=== PATIENT | female | born 1945 | race Two or more races ===

== ENCOUNTER 2017-11-23 10:26 | Outpatient (CLI) | payer OTHER | END 2017-11-23 11:20 | disposition home or self-care (01) | LOC: SONOGRAMA 10:26 | DX: M54.5 Low back pain (principal); R31.9 Hematuria, unspecified ==

== ENCOUNTER → 2017-11-23 10:37 | Outpatient (CLI) | payer OTHER | END | disposition home or self-care (01) | LOC: RAD 10:37 | DX: M15.8 Other polyosteoarthritis (principal); M54.5 Low back pain ==

== ENCOUNTER 2018-04-09 11:02 | Outpatient (CLI) | payer OTHER | END 2018-04-09 11:08 | disposition home or self-care (01) | LOC: LAB 11:02 | DX: Z11.3 Encounter for screening for infections with a predominantly sexual mode of transmission (principal) ==

== ENCOUNTER 2018-08-22 06:41 | Outpatient (CLI) | payer OTHER | END 2018-08-22 06:59 | disposition home or self-care (01) | LOC: LAB 06:41 | DX: I10 Essential (primary) hypertension (principal); N39.0 Urinary tract infection, site not specified; D64.89 Other specified anemias; N95.2 Postmenopausal atrophic vaginitis; R10.31 Right lower quadrant pain ==

== ENCOUNTER 2019-03-05 07:31 | Outpatient (CLI) | payer OTHER | END 2019-03-05 07:57 | disposition home or self-care (01) | LOC: LAB 07:31 | DX: E03.8 Other specified hypothyroidism (principal); E78.2 Mixed hyperlipidemia; E11.9 Type 2 diabetes mellitus without complications; I10 Essential (primary) hypertension ==

== ENCOUNTER 2019-07-21 12:25 | Outpatient (CLI) | payer OTHER | END 2019-07-21 14:39 | disposition home or self-care (01) | LOC: RAD 12:25 | DX: M54.2 Cervicalgia (principal); M54.6 Pain in thoracic spine; M47.812 Spondylosis without myelopathy or radiculopathy, cervical region; M47.814 Spondylosis without myelopathy or radiculopathy, thoracic region; I10 Essential (primary) hypertension ==

== ENCOUNTER → 2020-08-01 | Outpatient (CLI) | payer OTHER | END | disposition home or self-care (01) | LOC: OFIC 805 14:30 | PROVIDERS: ATTEND Otolaryngology Otology & Neurotology | DX: R05 Cough (principal); R09.82 Postnasal drip; K21.9 Gastro-esophageal reflux disease without esophagitis ==

== ENCOUNTER 2020-08-10 08:10 | Outpatient (CLI) | payer OTHER | END 2020-08-10 08:15 | disposition home or self-care (01) | LOC: SONOGRAMA 08:10 | PROVIDERS: ATTEND Internal Medicine Gastroenterology | DX: Q61.8 Other cystic kidney diseases (principal); K21.9 Gastro-esophageal reflux disease without esophagitis; Z86.010 Personal history of colon polyps; R10.13 Epigastric pain ==

== ENCOUNTER 2020-10-31 15:11 | Outpatient (CLI) | payer OTHER | END 2020-10-31 16:20 | disposition home or self-care (01) | LOC: OFIC 805 15:11 | PROVIDERS: ATTEND Otolaryngology Otology & Neurotology | DX: R05 Cough (principal); R09.82 Postnasal drip; K21.9 Gastro-esophageal reflux disease without esophagitis; J31.0 Chronic rhinitis ==

== ENCOUNTER 2020-11-14 08:35 | Outpatient (CLI) | payer OTHER | END 2020-11-14 12:33 | disposition home or self-care (01) | LOC: MAMO-SONO 08:35 | PROVIDERS: ATTEND Obstetrics & Gynecology Gynecology | DX: N60.11 Diffuse cystic mastopathy of right breast (principal); N60.12 Diffuse cystic mastopathy of left breast; N64.59 Other signs and symptoms in breast ==

== ENCOUNTER → 2021-01-11 06:54 | Outpatient (CLI) | payer OTHER | END | disposition home or self-care (01) | LOC: LAB 06:54 | PROVIDERS: ATTEND Internal Medicine Cardiovascular Disease | DX: I10 Essential (primary) hypertension (principal); E11.9 Type 2 diabetes mellitus without complications; E03.8 Other specified hypothyroidism; E78.2 Mixed hyperlipidemia ==

== ENCOUNTER → 2021-04-27 13:25 | Outpatient (CLI) | payer OTHER | END | disposition home or self-care (01) | LOC: NUCLEAR 13:15 | PROVIDERS: ATTEND Internal Medicine Rheumatology | DX: M81.0 Age-related osteoporosis without current pathological fracture (principal) ==

== ENCOUNTER 2021-05-12 07:50 | Outpatient (CLI) | payer OTHER | END 2021-05-12 15:00 | disposition home or self-care (01) | LOC: LAB 07:50 | PROVIDERS: ATTEND Internal Medicine Cardiovascular Disease | DX: E11.9 Type 2 diabetes mellitus without complications (principal) ==

== ENCOUNTER 2021-06-14 06:59 | Outpatient (CLI) | payer OTHER | END 2021-06-14 07:01 | disposition home or self-care (01) | LOC: LAB 06:59 | PROVIDERS: ATTEND Internal Medicine Cardiovascular Disease | DX: I10 Essential (primary) hypertension (principal); E11.9 Type 2 diabetes mellitus without complications; E03.8 Other specified hypothyroidism; E78.2 Mixed hyperlipidemia ==

== ENCOUNTER 2021-06-23 07:24 | Outpatient (CLI) | payer OTHER | END 2021-06-23 07:35 | disposition home or self-care (01) | LOC: TOM 07:24 | PROVIDERS: ATTEND Internal Medicine Cardiovascular Disease | DX: K76.0 Fatty (change of) liver, not elsewhere classified (principal); Q61.02 Congenital multiple renal cysts; R10.84 Generalized abdominal pain | CPT/HCPCS: 74177; Q9965 ==

== ENCOUNTER 2021-07-10 07:04 | Outpatient (CLI) | payer OTHER | END 2021-07-10 07:06 | disposition home or self-care (01) | LOC: LAB 07:04 | PROVIDERS: ATTEND Internal Medicine Cardiovascular Disease | DX: I11.9 Hypertensive heart disease without heart failure (principal) ==

== ENCOUNTER 2021-07-17 09:04 | Outpatient (CLI) | payer OTHER | END 2021-07-17 09:10 | disposition home or self-care (01) | LOC: NUCLEAR 09:04 | PROVIDERS: ATTEND Internal Medicine Cardiovascular Disease | DX: I47.1 Supraventricular tachycardia (principal) ==

== ENCOUNTER 2021-09-19 07:52 | Outpatient (CLI) | payer OTHER | END 2021-09-19 10:19 | disposition home or self-care (01) | LOC: LAB 07:52 | PROVIDERS: ATTEND Radiology Diagnostic Radiology | DX: N18.9 Chronic kidney disease, unspecified (principal) ==

== ENCOUNTER 2021-10-11 10:59 | Emergency (ER) | payer OTHER ==
[~2021-10-11] VITALS: Ht 149.9 cm; Wt 70.8 kg
[2021-10-11] MEDS ORDERED: ATENOLOL25 MG PO (11:24)
[2021-10-11] MEDS ORDERED: LOSARTAN POTAS100 MG PO (11:25)
[2021-10-11] MEDS ORDERED: SYNTHROID88 MCG PO (11:25)
[2021-10-11] MEDS ORDERED: PANTOPRAZOLE SO40 MG PO (11:25)
[2021-10-11] MEDS ORDERED: LATANOPROST2.5 ML OP (11:25)
[2021-10-11] MEDS ORDERED: TIZANIDINE HCL4 MG PO (11:25)
[2021-10-11] MEDS ORDERED: CLONAZEPAM1 MG PO (11:25)
== END 2021-10-11 13:33 | disposition home or self-care (01) ==
LOC: ER 10:59
DX: K52.9 Noninfective gastroenteritis and colitis, unspecified (principal); E86.0 Dehydration; B34.9 Viral infection, unspecified; Z11.52 Encounter for screening for COVID-19

== ENCOUNTER 2021-11-09 07:09 | Outpatient (CLI) | payer OTHER ==
[~2021-11-09 07:09] MED LIST: ATENOLOL25 MG PO; CLONAZEPAM1 MG PO; LATANOPROST2.5 ML OP; LOSARTAN POTAS100 MG PO; PANTOPRAZOLE SO40 MG PO; SYNTHROID88 MCG PO; TIZANIDINE HCL4 MG PO
== END 2021-11-09 07:10 | disposition home or self-care (01) ==
LOC: LAB 07:09
PROVIDERS: ATTEND Internal Medicine Cardiovascular Disease
DX: I10 Essential (primary) hypertension (principal); E11.9 Type 2 diabetes mellitus without complications; E03.9 Hypothyroidism, unspecified; E78.2 Mixed hyperlipidemia; Z12.11 Encounter for screening for malignant neoplasm of colon; E55.9 Vitamin D deficiency, unspecified

== ENCOUNTER 2021-11-13 08:17 | Outpatient (CLI) | payer OTHER | END 2021-11-13 08:18 | disposition home or self-care (01) | LOC: LAB 08:17 | PROVIDERS: ATTEND Internal Medicine Cardiovascular Disease | DX: I10 Essential (primary) hypertension (principal); E11.9 Type 2 diabetes mellitus without complications; E03.9 Hypothyroidism, unspecified; E78.2 Mixed hyperlipidemia; Z12.11 Encounter for screening for malignant neoplasm of colon; E55.9 Vitamin D deficiency, unspecified ==

== ENCOUNTER 2022-03-02 07:33 | Outpatient (CLI) | payer OTHER | END 2022-03-02 07:37 | disposition home or self-care (01) | LOC: LAB 07:33 | PROVIDERS: ATTEND Internal Medicine Cardiovascular Disease | DX: I10 Essential (primary) hypertension (principal); E11.9 Type 2 diabetes mellitus without complications; E78.2 Mixed hyperlipidemia ==

== ENCOUNTER 2022-03-07 12:40 | Outpatient (CLI) | payer OTHER | END 2022-03-07 12:47 | disposition home or self-care (01) | LOC: LAB 12:40 | DX: M85.89 Other specified disorders of bone density and structure, multiple sites (principal) ==

== ENCOUNTER 2022-03-16 13:48 | Outpatient (CLI) | payer OTHER | END 2022-03-16 13:53 | disposition home or self-care (01) | LOC: RAD 13:48 | PROVIDERS: ATTEND Internal Medicine Rheumatology | DX: R05.9 Cough, unspecified (principal) ==

== ENCOUNTER 2022-06-27 06:59 | Outpatient (CLI) | payer OTHER | END 2022-06-27 07:24 | disposition home or self-care (01) | LOC: LAB 06:59 | PROVIDERS: ATTEND Internal Medicine Cardiovascular Disease | DX: I10 Essential (primary) hypertension (principal); E11.9 Type 2 diabetes mellitus without complications; E03.9 Hypothyroidism, unspecified; E78.2 Mixed hyperlipidemia ==

== ENCOUNTER 2022-06-27 08:00 | Outpatient (CLI) | payer OTHER | END 2022-06-27 08:05 | disposition home or self-care (01) | LOC: PPH VACUNA 08:00 | PROVIDERS: ATTEND Emergency Medicine Pediatric Emergency Medicine | DX: Z23 Encounter for immunization (principal) | CPT/HCPCS: 90686; G0008 ==

== ENCOUNTER 2022-07-27 07:06 | Outpatient (CLI) | payer OTHER | END 2022-07-27 07:15 | disposition home or self-care (01) | LOC: SONOGRAMA 07:06 | PROVIDERS: ATTEND Emergency Medicine Pediatric Emergency Medicine | DX: D13.4 Benign neoplasm of liver (principal) ==

== ENCOUNTER 2022-08-29 08:08 | Outpatient (CLI) | payer OTHER | END 2022-08-29 15:51 | disposition home or self-care (01) | LOC: LAB 08:08 | PROVIDERS: ATTEND Internal Medicine Gastroenterology | DX: D13.4 Benign neoplasm of liver (principal); R74.01 Elevation of levels of liver transaminase levels ==

== ENCOUNTER 2022-09-03 08:27 | Outpatient (CLI) | payer OTHER | END 2022-09-03 08:29 | disposition home or self-care (01) | LOC: LAB 08:27 | PROVIDERS: ATTEND Internal Medicine Gastroenterology | DX: Z11.52 Encounter for screening for COVID-19 (principal); Z20.822 Contact with and (suspected) exposure to COVID-19; Z20.828 Contact with and (suspected) exposure to other viral communicable diseases ==

== ENCOUNTER 2022-11-05 06:58 | Outpatient (CLI) | payer OTHER | END 2022-11-05 07:40 | disposition home or self-care (01) | LOC: LAB 06:58 | PROVIDERS: ATTEND Internal Medicine Gastroenterology | DX: R74.01 Elevation of levels of liver transaminase levels (principal) ==

== ENCOUNTER → 2022-11-12 07:19 | Outpatient (CLI) | payer OTHER | END | disposition home or self-care (01) | LOC: LAB 07:19 | PROVIDERS: ATTEND Internal Medicine Cardiovascular Disease | DX: I10 Essential (primary) hypertension (principal); E11.9 Type 2 diabetes mellitus without complications; E03.9 Hypothyroidism, unspecified; E78.2 Mixed hyperlipidemia; Z12.11 Encounter for screening for malignant neoplasm of colon; M79.7 Fibromyalgia; E78.01 Familial hypercholesterolemia; E03.8 Other specified hypothyroidism ==

== ENCOUNTER 2022-11-13 07:14 | Outpatient (CLI) | payer OTHER | END 2022-11-13 07:15 | disposition home or self-care (01) | LOC: LAB 07:14 | PROVIDERS: ATTEND Internal Medicine Cardiovascular Disease | DX: Z12.11 Encounter for screening for malignant neoplasm of colon (principal); I10 Essential (primary) hypertension; E11.9 Type 2 diabetes mellitus without complications; E03.9 Hypothyroidism, unspecified; E78.2 Mixed hyperlipidemia ==

== ENCOUNTER 2022-12-18 09:04 | Outpatient (CLI) | payer OTHER | END 2022-12-18 09:06 | disposition home or self-care (01) | LOC: LAB 09:04 | PROVIDERS: ATTEND Internal Medicine Cardiovascular Disease | DX: J11.1 Influenza due to unidentified influenza virus with other respiratory manifestations (principal); A49.3 Mycoplasma infection, unspecified site; Z20.822 Contact with and (suspected) exposure to COVID-19 ==

== ENCOUNTER → 2023-06-11 | Outpatient (CLI) | payer OTHER | END | disposition home or self-care (01) | LOC: NUCLEAR 06-06 13:15 | PROVIDERS: ATTEND Obstetrics & Gynecology Gynecology | DX: M81.0 Age-related osteoporosis without current pathological fracture (principal) ==

== ENCOUNTER 2023-07-31 06:41 | Outpatient (CLI) | payer OTHER | END 2023-07-31 06:49 | disposition home or self-care (01) | LOC: LAB 06:41 | PROVIDERS: ATTEND Internal Medicine Rheumatology | DX: R76.0 Raised antibody titer (principal); R74.8 Abnormal levels of other serum enzymes ==

== ENCOUNTER 2023-10-17 06:33 | Outpatient (CLI) | payer OTHER ==
[2023-10-17 07:11] LABS: HEMATOCRIT 40.8 % (36.0-45.00); HEMOGLOBIN 14.1 g/dL (12.0-15.00); MEAN CELL VOLUME 88.4 fL (80.00-100.00); MEAN CORPUSCULAR HEMOGLOBIN 30.4 pg (27.00-32.0); MEAN CORPUSCULAR HGB CONC 34.4 g/dl (32.0-36.0); PLATELET COUNT 202 K/uL (150-450); RED BLOOD COUNT 4.62 M/uL (4.00-6.00); RED CELL DISTRIBUTION WIDTH 13.1 % (11.5-14.5)
[2023-10-17 07:55] LABS: ALBUMIN 3.7 gm/dL (3.4-5.0); CALCIUM 9.6 mg/dL (8.5-10.1); CREATININE SERUM 0.76 mg/dL (0.55-1.02); GFR 73.99; PHOSPHOROUS 3.6 mg/dL (2.5-4.9); POTASSIUM 3.82 mEq/L (3.5-5.1)
[2023-10-17 08:33] LABS: URINE APPEARANCE Cloudy; URINE BILIRRUBIN Negative (NEGATIVE); URINE BLOOD Large; URINE COLOR Yellow; URINE GLUCOSE Negative (NEGATIVE); URINE LEUKOCYTE Moderate; URINE NITRATE Negative; URINE PROTEIN Negative (NEGATIVE); URINE UROBILINOGEN 0.2 E.U./dl
[2023-10-17 08:34] LABS: URINE BACTERIA 139.8 uL (0.0-1933); URINE EPITHELIAL CELLS 27.3 uL (0.0-38.8); URINE RBC 382.8 uL (0.0-20.8); URINE WBC 89.3 uL (0.0-23.2)
[2023-10-17 09:11] LABS: URINE CRYSTALS FEW /HPF
== END 2023-10-17 06:35 | disposition home or self-care (01) ==
LOC: LAB 06:33
PROVIDERS: ATTEND Internal Medicine Cardiovascular Disease
DX: N39.0 Urinary tract infection, site not specified (principal); R10.9 Unspecified abdominal pain; I10 Essential (primary) hypertension